=== PATIENT | female | born 1965 | race Caucasian/White ===

== ENCOUNTER → 2016-11-21 | Outpatient (CLI) | payer OTHER ==
[2016-11-21 15:56] LABS: ALBUMIN 3.2 g/dL (3.4-5.0); ALBUMIN/GLOBULIN RATIO 0.7 (1.0-1.7); CALCIUM 9.2 mg/dL (8.5-10.1); CREATININE 0.7 mg/dL (0.6-1.0); GFR 88.2; POTASSIUM 3.8 mmol/L (3.5-5.1); TOTAL BILIRUBIN 0.4 mg/dL (0.2-1.0); TOTAL PROTEIN 7.7 g/dL (6.4-8.2)
[2016-11-24 05:45] LABS: HCV ULTRA QUANT PCR HCV Not Detected IU/mL (.)
== END | disposition home or self-care (01) ==
LOC: LAB 15:17
DX: B18.2 Chronic viral hepatitis C (principal)
CPT/HCPCS: 80053

== ENCOUNTER → 2016-12-17 | Outpatient (CLI) | payer OTHER ==
[2016-12-17 15:44] LABS: ALBUMIN 3.3 g/dL (3.4-5.0); ALBUMIN/GLOBULIN RATIO 0.8 (1.0-1.7); CALCIUM 9.1 mg/dL (8.5-10.1); CREATININE 0.8 mg/dL (0.6-1.0); GFR 75.6; POTASSIUM 3.7 mmol/L (3.5-5.1); TOTAL BILIRUBIN 0.3 mg/dL (0.2-1.0); TOTAL PROTEIN 7.5 g/dL (6.4-8.2)
== END | disposition home or self-care (01) ==
LOC: LAB 15:03
PROVIDERS: ATTEND Internal Medicine Gastroenterology
DX: B18.2 Chronic viral hepatitis C (principal)
CPT/HCPCS: 36415; 80053

== ENCOUNTER → 2017-01-13 | Outpatient (CLI) | payer OTHER ==
[2017-01-13 16:37] LABS: ALBUMIN 3.3 g/dL (3.4-5.0); ALBUMIN/GLOBULIN RATIO 0.7 (1.0-1.7); CALCIUM 9.1 mg/dL (8.5-10.1); CREATININE 0.8 mg/dL (0.6-1.0); GFR 75.6; POTASSIUM 3.9 mmol/L (3.5-5.1); TOTAL BILIRUBIN 0.3 mg/dL (0.2-1.0); TOTAL PROTEIN 7.8 g/dL (6.4-8.2)
[2017-01-15 20:12] LABS: HCV ULTRA QUANT PCR HCV Not Detected IU/mL (.)
== END | disposition home or self-care (01) ==
LOC: LAB 15:54
PROVIDERS: ATTEND Internal Medicine Gastroenterology
DX: B18.2 Chronic viral hepatitis C (principal)
CPT/HCPCS: 36415; 80053; 87521

== ENCOUNTER → 2017-04-07 | Outpatient (CLI) | payer OTHER ==
[2017-04-09 10:26] LABS: HCV ULTRA QUANT PCR HCV Not Detected IU/mL (.)
== END | disposition home or self-care (01) ==
LOC: LAB 15:26
PROVIDERS: ATTEND Internal Medicine Gastroenterology
DX: B18.2 Chronic viral hepatitis C (principal)
CPT/HCPCS: 36415; 87521

== ENCOUNTER → 2017-05-19 | Outpatient (CLI) | payer OTHER | END | disposition home or self-care (01) | LOC: LAB 13:40 | PROVIDERS: ATTEND Internal Medicine Gastroenterology | DX: R74.8 Abnormal levels of other serum enzymes (principal) | CPT/HCPCS: 36415; 84075 ==

== ENCOUNTER 2021-10-13 11:18 | Emergency (ER) | payer OTHER ==
[~2021-10-13] VITALS: Ht 162.6 cm; Wt 54.0 kg
--- NOTE | 2021-10-13 11:21 | PHYS DOC ---
Adult General Chief Complaint Chief Complaint: SHORTNESS OF BREATH [facility] HPI Patient is a 56 year old female who presents with dyspnea. She has been having intermittent dyspnea over the last week. Symptoms became worse earlier today which is what prompted her ER visit. No chest pain or shortness of breath. No viral symptoms. She does complain however of severe persistent cough which is productive of yellow and sometimes brown sputum. Patient has extensive tobacco history and smoked for 50 years. She has not formally been diagnosed with COPD in the past. She is not oxygen dependent but she states she lives with her mother who does have oxygen and the patient could access her oxygen concentrator. Patient has not been treated previously with inhaled type medications. She has no coronary artery disease. No ill contacts. No GI symptoms. Review of Systems Review of Systems Constitutional: Denies fever or chills Eyes: Denies change in visual acuity, redness, or eye pain HENT: Denies nasal congestion or sore throat Respiratory: As documented in HPI Cardiovascular: No chest pain GI: Denies abdominal pain, nausea, vomiting, bloody stools or diarrhea : Denies dysuria or hematuria Musculoskeletal: Denies back pain or joint pain Integument: Denies rash Neurologic: Denies headache All other systems were reviewed and found to be within normal limits, except as documented in this note. Current Medications Current Medications Current Medications Medications (Trade) Dose Ordered Sig/Navjot Start Time Stop Time Status Last Admin Dose Admin Albuterol/ Ipratropium (Duoneb) 3 ml 1X ONCE 10/13/21 14:15 10/13/21 14:16 DC 10/13/21 14:36 3 ML Azithromycin (Zithromax) 500 mg 1X ONCE 10/13/21 14:30 10/13/21 14:31 DC 10/13/21 14:58 500 MG Ceftriaxone Sodium (Rocephin) 1 gm 1X ONCE 10/13/21 14:30 10/13/21 14:31 DC 10/13/21 14:59 1 GM Potassium Bicarbonate (Potassium Effervescent Tablet) 40 meq 1X ONCE 10/13/21 13:15 10/13/21 13:16 DC 10/13/21 12:49 40 MEQ Potassium Chloride (Klor-Con) 40 meq 1X ONCE 10/13/21 14:15 10/13/21 14:16 DC 10/13/21 14:59 40 MEQ Prednisone (Prednisone) 50 mg 1X ONCE 10/13/21 14:30 10/13/21 14:31 DC 10/13/21 14:58 50 MG Allergies Allergies Allergies Coded Allergies Type Severity Reaction Last Updated Verified No Known Drug Allergies 10/13/21 No Physical Exam Physical Exam Constitutional: Well developed, well nourished, no acute distress, non-toxic appearance HENT: Normocephalic, atraumatic, bilateral external ears normal, oropharynx moist Eyes: PERRLA, EOMI, conjunctiva normal, no discharge. Neck: Normal range of motion, no tenderness, supple Cardiovascular:Heart rate regular rhythm, no murmur Lungs & Thorax: Congested lung sounds bilaterally. She does have wheezes. Pr eserved airflow in all shi Abdomen: Bowel sounds normal, soft, no tenderness Skin: Warm, dry Back: Normal ROM Extremities: No tenderness, no cyanosis, no clubbing, ROM intact, no edema Neurologic: Alert and oriented X 3, normal motor function Psychologic: Affect normal Current Patient Data Vital Signs Vital Signs Date Time Temp Pulse Resp B/P (MAP) Pulse Ox O2 Delivery O2 Flow Rate FiO2 10/13/21 14:37 93 Room Air 10/13/21 12:54 82 216/84 (128) 10/13/21 11:25 98.9 20 98.9 Lab Values Laboratory Tests Test 10/13/21 11:34 10/13/21 13:11 White Blood Count 14.1 x10^3/uL (4.0-11.0) H Red Blood Count 4.10 x10^6/uL (3.50-5.40) Hemoglobin 13.3 g/dL (12.0-15.5) Hematocrit 38.6 % (36.0-47.0) Mean Corpuscular Volume 94 fL (79-100) Mean Corpuscular Hemoglobin 32 pg (25-35) Mean Corpuscular Hemoglobin Concent 34 g/dL (31-37) Red Cell Distribution Width 13.4 % (11.5-14.5) Platelet Count 439 x10^3/uL (140-400) H Neutrophils (%) (Auto) 83 % (31-73) H Lymphocytes (%) (Auto) 10 % (24-48) L Monocytes (%) (Auto) 5 % (0-9) Eosinophils (%) (Auto) 1 % (0-3) Basophils (%) (Auto) 1 % (0-3) Neutrophils # (Auto) 11.8 x10^3/uL (1.8-7.7) H Lymphocytes # (Auto) 1.5 x10^3/uL (1.0-4.8) Monocytes # (Auto) 0.7 x10^3/uL (0.0-1.1) Eosinophils # (Auto) 0.1 x10^3/uL (0.0-0.7) Basophils # (Auto) 0.1 x10^3/uL (0.0-0.2) Sodium Level 129 mmol/L (136-145) L Potassium Level 1.6 mmol/L (3.5-5.1) *L Chloride Level 92 mmol/L (98-107) L Carbon Dioxide Level 29 mmol/L (21-32) Anion Gap 8 (6-14) Blood Urea Nitrogen 13 mg/dL (7-20) Creatinine 1.8 mg/dL (0.6-1.0) H Estimated GFR (Cockcroft-Gault) 29.1 Glucose Level 129 mg/dL (70-99) H Calcium Level 8.3 mg/dL (8.5-10.1) L Troponin I High Sensitivity 121 ng/L (4-50) H BZ-Xol-Z-Type Natriuretic Peptide > 28668 pg/mL (0-124) H Influenza Type A Antigen Negative (NEGATIVE) Influenza Type B Antigen Negative (NEGATIVE) SARS-CoV-2 Antigen (Rapid) Negative (NEGATIVE) Laboratory Tests 10/13/21 11:34 Laboratory Tests 10/13/21 11:34 EKG EKG 13:00: Normal sinus rhythm. No ST changes to suggest ischemia. Overall quality of EKG is poor with baseline wander. Given these limitations, EKG appears nonacute. Rate is 79. Interpreted by ER physician Radiology/Procedures Radiology/Procedures [] Course & Med Decision Making Course & Med Decision Making Pertinent Labs and Imaging studies reviewed. (See chart for details) Patient is evaluated on arrival to her room. No acute distress. She does describe findings concerning for pneumonia. She has extensive tobacco history but no history of diagnosis of COPD. Will give DuoNeb treatment after her COVID test is confirmed to be negative. 15:10: ED summary: All results are reviewed and discussed with the patient. Unfortunately, she is noted to have mildly elevated high-sensitivity troponin. Also has severely elevated BNP of 32,000. She does not clinically have signs of fluid overload and appears more consistent with COPD exacerbation. She has mildly elevated creatinine but there is no baseline for comparison. Patient has not been having chest pain. Overall feel that she would benefit from admission and trending of her troponins. Her EKG does not reveal acute STEMI. Patient is advised of all of these findings but is adamant that she is unwilling to be admitted to the hospital. Chest x-ray concerning for possible pneumonia, particular given the HPI she provides. She was given steroids in the ER along with Rocephin and azithromycin. She will be discharged home on azithromycin over the next 4 days and steroids as well. Noted to be significantly hypokalemic in the ER, likely as she gives a history that she has not been eating and drinking for over the last week when she has felt poorly. She was given a total of 100 mill equivalents of potassium during ER course and she is discharged home also with 20 mill equivalents daily over the next 5 days. Specifically, I informed her of her cardiac findings including elevated troponin and BNP. I strongly emphasized that these need to be followed by cardiology as soon as possible for echocardiogram. Also recommended that she have basic labs repeated in 7 to 10 days. Strict return precautions discussed and she will come back to this ER for any severely worsening symptoms. Again, I recommendation for the patient is admission to the hospital and she is choosing to be discharged at this time. Dragon Disclaimer Dragon Disclaimer This electronic medical record was generated, in whole or in part, using a voice recognition dictation system. Departure Departure Impression: Primary Impression: COPD (chronic obstructive pulmonary disease) Additional Impressions: Congestive heart failure (CHF) Hypokalemia Pneumonia Disposition: HOME / SELF CARE / HOMELESS Referrals: SHAYNA MYERS MD (PCP) URBANO CRENSHAW MD Patient Instructions: Acute Bronchitis, Heart Failure, [id number], Hypokalemia-Brief Scripts Azithromycin (AZITHROMYCIN TABLET) 250 Mg Tablet 250 MG PO DAILY for ANTI-BIOTIC for 4 Days, #4 TAB 0 Refills Prov: ULICES NICHOLSON DO 10/13/21 Prednisone (PREDNISONE) 50 Mg Tablet 1 TAB PO DAILY for 5 Days, #5 TAB Prov: ULICES NICHOLSON DO 10/13/21 Potassium Chloride (KLOR-CON M20) 20 Meq Tab.er.prt 20 MEQ PO DAILY for 7 Days, #7 TAB.SR Prov: ULICES NICHOLSON DO 10/13/21 Problem Qualifiers ULICES NICHOLSON DO Oct 13, 2021 11:21
[2021-10-13 11:49] LABS: BASO # 0.1 x10^3/uL (0.0-0.2); BASO % 1 % (0-3); EOS # 0.1 x10^3/uL (0.0-0.7); EOS % 1 % (0-3); HEMATOCRIT 38.6 % (36.0-47.0); HEMOGLOBIN 13.3 g/dL (12.0-15.5); LYMPH # 1.5 x10^3/uL (1.0-4.8); LYMPH % 10 % (24-48); MEAN CORPUSCULAR HEMOGLOBIN 32 pg (25-35); MEAN CORPUSCULAR HGB CONC 34 g/dL (31-37); MEAN CORPUSCULAR VOLUME 94 fL (79-100); MONO # 0.7 x10^3/uL (0.0-1.1); MONO % 5 % (0-9); NEUT # 11.8 x10^3/uL (1.8-7.7); NEUT % 83 % (31-73); PLATELET COUNT 439 x10^3/uL (140-400); RED CELL DISTRIBUTION WIDTH 13.4 % (11.5-14.5); WHITE BLOOD COUNT 14.1 x10^3/uL (4.0-11.0)
[2021-10-13 11:59] LABS: CALCIUM 8.3 mg/dL (8.5-10.1); CREATININE 1.8 mg/dL (0.6-1.0); GFR 29.1
[2021-10-13 12:23] LABS: POTASSIUM 1.6 mmol/L (3.5-5.1)
--- NOTE | 2021-10-13 12:55 | RAD ---
XR CHEST 1V INDICATION: dyspnea / Spl. Instructions: / History: . COMPARISON STUDY: None. FINDINGS: Lungs: Normal lung volume. Right basilar heterogeneous opacities. Pleura: Small right pleural effusion. Heart and Mediastinum: The cardiomediastinal silhouette is normal. The great vessels of the thorax ar e normal. IMPRESSION: 1. Right basilar opacities, concerning for an infectious/inflammatory process. 2. Small right pleural effusion. Electronically signed by: Elroy Munguia MD (10/13/2021 12:53 PM) [id number]
[2021-10-13] MEDS ORDERED: POTASSIUM BICARB 20 MEQ EFFERVESCENT TABLET. PO ONE ×2 (13:15)
[2021-10-13 13:46] LABS: INFLUENZA A PATIENT NEGATIVE (NEGATIVE); INFLUENZA B PATIENT NEGATIVE (NEGATIVE)
[2021-10-13] MEDS ORDERED: IPRATRPIUM/ALBUTEROL 0.5/2.5MG 3 ML NEBU. NEB ONE (14:15)
[2021-10-13] MEDS ORDERED: POTASSIUM CHLORIDE 20 MEQ TABLET.ER. PO ONE (14:15)
[2021-10-13] MEDS ORDERED: predniSONE 10 MG TABLET PO ONE (14:30)
[2021-10-13] MEDS ORDERED: cefTRIAXone IV Push 1 GM VIAL. IVP ONE (14:30)
[2021-10-13] MEDS ORDERED: AZITHROMYCIN 250 MG TABLET. PO ONE (14:30)
[2021-10-13 14:54] VITALS: BP 173/109
[2021-10-13] MEDS ORDERED: PRED50TA PO (15:14)
[2021-10-13] MEDS ORDERED: POTA-121 PO (15:14)
[2021-10-13] MEDS ORDERED: AZIT250T6 PO (15:14)
[2021-10-13] MEDS ORDERED: VENTOLIN HFA18 GM INH (15:20)
--- NOTE | 2021-10-14 01:48 | EKG ---
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
== END 2021-10-13 15:47 | disposition home or self-care (01) ==
LOC: ER 11:18
DX: J44.9 Chronic obstructive pulmonary disease, unspecified (principal); I50.9 Heart failure, unspecified; E87.6 Hypokalemia; J18.9 Pneumonia, unspecified organism; Z20.822 Contact with and (suspected) exposure to COVID-19
CPT/HCPCS: 36415; 71045; 80048; 83880; 84484; 85025; 87428; 93005; 94640; 96374; 99285; J0696; J7512